=== PATIENT | male | born 1945 | race Caucasian/White ===

== ENCOUNTER 2018-07-28 14:38 | Emergency (ER) | payer MEDICARE ==
[~2018-07-28] VITALS: Wt 136.1 kg
--- NOTE | ~2018-07-28 | EKG ---
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
--- NOTE | ~2018-07-28 | EKG ---
[place], [place] ELECTROCARDIOGRAM REPORT NAME: YASMINE HOWARD UNIT #: [id number] ROOM: DOCTOR: EPIPHANY DRAFT REPORT BIRTHDATE: [birth year] [facility] Test Date: 2018-07-28 Test Time: 15:34:31 Pat Name: YASMINE HOWARD Department: Room: Gender: [employer]: Pavithra Jimenez : 1945 Requested By: SHEA MCFADDEN PA-C Order Number: [id number] Reading MD: Jean Islas MD Measurements Intervals [place] Rate: 81 P: 69 FL: 167 QRS: 73 QRSD: 119 T: 124 QT: 500 QTc: 581 Interpretive Statements Sinus rhythm Nonspecific intraventricular conduction delay Borderline repolarization abnormality Electronically Signed On 07-31-2018 3:12:35 PST by Jean Islas MD CM:EKGRPT:ELECTROCARDIOGRAM REPORT [id number] SHEA MCFADDEN PA-C EPIPHANY DRAFT REPORT SHEA MCFADDEN PA-C
[~2018-07-28 14:38] MED LIST: GLUCOTROL XL2.5 MG PO; JANUVIA50 MG PO; Lopressor25 MG PO; METFORMIN500 MG PO; TOPROL XL25 MG; ZOCOR10 MG PO
[2018-07-28 15:26] LABS: BASO # 0.1 10*3/uL (0.0-0.1); BASO % 0.4 % (0.0-1.0); EOS # 0.1 10*3/uL (0.0-0.4); EOS % 0.9 % (1.0-4.0); HEMATOCRIT 46.9 % (42.0-52.0); HEMOGLOBIN 13.8 g/dl (14.0-18.0); LYMPH % 8.7 % (27.0-41.0); MEAN CELL VOLUME 97.9 fl (80.0-94.0); MEAN CORPUSCULAR HGB 28.8 pg (27.0-31.0); MEAN CORPUSCULAR HGB CONC 29.4 g/dl (33.0-37.0); MEAN PLATELET VOLUME 9.1 fl (9.6-12.3); MONO % 8.9 % (3.0-9.0); NEUT # 9.1 10*3/uL (2.3-7.9); NEUT % 80.7 % (47.0-73.0); NUCLEATED RED BLOOD CELL 0.2 % (0.0-0.0); PLATELET COUNT AUTOMATED 290 10*3/uL (130-400); RED BLOOD COUNT 4.79 10*6/uL (4.50-5.90); RED CELL DISTRI WIDTH 15.6 % (0-14.5); WHITE BLOOD COUNT 11.3 10*3/uL (4.8-10.8)
[2018-07-28 15:38] LABS: BILIRUBIN 1+ (NEGATIVE); BLOOD NEGATIVE (NEGATIVE); CLARITY CLEAR (CLEAR); COLOR YELLOW (YELLOW); GLUCOSE NEGATIVE (NEGATIVE); KETONE TRACE (NEGATIVE); LEUKO ESTERASE NEGATIVE (NEGATIVE); NITRITE NEGATIVE (NEGATIVE); PH 5.5 (5.0-9.0); SPECIFIC GRAVITY >= 1.030 (1.005-1.030); UROBILINOGEN 0.2 E.U./dl (0.2-1.0)
[2018-07-28 15:42] LABS: ALBUMIN 2.9 gm/dl (3.1-4.5); ALKALINE PHOSPHATASE 96 U/L (45-117); BUN 25 mg/dl (7-24); CHLORIDE 101 mmol/L (98-107); CREATININE 1.25 mg/dL (0.70-1.30); POTASSIUM 5.3 mmol/L (3.5-5.1); SGOT/AST 16 IU/L (3-35); SGPT/ALT 21 U/L (12-78); SODIUM 139 mmol/L (136-145); TOTAL PROTEIN 7.7 gm/dL (6.4-8.2)
[2018-07-28 15:48] LABS: MUCOUS 1+
[2018-07-28 16:31] LABS: CKMB 3.8 ng/ml (0.5-3.6)
== END 2018-07-28 21:44 ==
LOC: ED 14:38
PROVIDERS: Physician Assistant
DX: G91.2 (Idiopathic) normal pressure hydrocephalus (principal); R09.02 Hypoxemia; R79.89 Other specified abnormal findings of blood chemistry; F17.210 Nicotine dependence, cigarettes, uncomplicated

== ENCOUNTER 2020-09-19 21:58 | Emergency (ER) | payer MEDICARE ==
[~2020-09-19] VITALS: Wt 129.3 kg
== END 2020-09-20 01:48 | disposition expired ==
LOC: ED 22:00
DX: R40.20 Unspecified coma (principal); I25.2 Old myocardial infarction; F41.9 Anxiety disorder, unspecified; Z79.899 Other long term (current) drug therapy; Z98.61 Coronary angioplasty status